=== PATIENT | female | born 1960 | race Caucasian/White ===

== ENCOUNTER 2019-02-20 09:28 | Day surgery (SDC) | payer OTHER ==
[~2019-02-20] VITALS: Ht 149.9 cm; Wt 103.4 kg
[~2019-02-20 09:28] MED LIST: VITAMIN C1000 MG PO
--- NOTE | 2019-02-20 12:21 | NUR ---
02/20/19 1221 Anabell Velazquez 1216 PT ARRIVED TO PACU ON 6L VIA MASK, PT DENIES PAIN. PT REORIENTED TO PACU. 1219 MD AT BEDSIDE AND PT ABLE TO SMILE WITH NO PROBLEMS PT CONTINUES TO DENY PAIN. VSS. RESP EVEN AND UNLABORED. 1221 PT COUHING OFF AND ON AND HOB INCREASED. O2 MASK REMOVED.
[2019-02-20] MEDS ORDERED: ACETAMINOPHEN500 M1 PO (12:49)
[2019-02-20] MEDS ORDERED: MOTRIN IB200 MG PO (12:49)
[2019-02-20] MEDS ORDERED: PERCOCET 7.5-31 EACH PO (12:50)
--- NOTE | 2019-02-20 13:07 | NUR ---
1255: PATIENT BACK IN DAY SURGERY ROOM FROM PACU. DENIES PAIN. DENIES NAUSEA. TOELRATING WATER. VS CHECKED. RIGHT SUBMANDIBLE DRESSING CLEAN, DRY AND INTACT. SCDs ON. IV SITE WNL. AT BEDSIDE. DR. AN IN TO SPEAK WITH PATIENT AND . CALL LIGHT WITHIN REACH.
--- NOTE | 2019-02-20 15:30 | NUR ---
1445: VS CHECKED. PATIENT TOLERATING WATER. GIVEN CRACKERS TO EAT. PATIENT RESTING. CALL LIGHT WITHIN REACH.
--- NOTE | 2019-02-20 15:40 | NUR ---
1500: PATIENT ASSISTED OOB AND TO BATHROOM. VOID WITHOUT DIFFICULTY. GATI STEADY TO AND FROM BATHROOM. PATIENT GETTING DRESSED. 1525: IV DC'D WNL, TIP INTACT. DRESSING APPLIED. DISCHARGE INSTRUCTIONS GIVEN TO PATIENT. PATIENT READY FOR DISCHARGE. WAITING FOR TO RETURN FROM APPOINTMENT.
--- NOTE | 2019-02-20 16:06 | NUR ---
1600: BACK FROM APPOINTMENT. PATIENT DISCHARGED TO HOME WITH VIA WHEELCHAIR.
--- NOTE | 2019-02-22 09:35 | PATH ---
[facility] [address], [place] [address] Signed SPECIMEN(S): A RIGHT SUBMANDIBULAR SPECIMEN(S): B RIGHT SUBMANDIBULAR SPECIMEN SOURCE: A. RIGHT SUBMANDIBULAR B. RIGHT SUBMANDIBULAR CLINICAL HISTORY: Excision of submandibular mass. FINAL PATHOLOGIC DIAGNOSIS: A. Lymph node, right submandibular, excision: - Granulomatous lymphadenitis (noncaseating), see Comment. B. Lymph node #2, right submandibular, excision: - Granulomatous lymphadenitis (noncaseating), see Comment. COMMENT: Section of the two lymph nodes (specimens A and B) are similar and show lymph nodes with effaced architecture by small, "tight' granulomas composed of epithelioid histiocytes, scattered giant cells, and small lymphocytes. Focal, rare areas of fibrinoid necrosis are seen in some granulomas. Dense fibrosis is present in some areas of the larger lymph node (specimen A). No polarizable foreign material is seen. Special stains for AFB and GMS (with appropriately staining controls) were performed on each lymph node and are negative for acid-fast bacilli and fungal organisms, respectively. The differential diagnosis includes sarcoid lymphadenopathy or sarcoid-like reaction. Correlation with clinical findings is recommended. As part of [facility] Quality Improvement Program, this case was reviewed by another member of our pathology staff. NAL:cml:C2NR MICROSCOPIC EXAMINATION: Histologic sections of all submitted blocks are examined by light microscopy. These findings, together with the gross examination, support the pathologic diagnosis. GROSS DESCRIPTION: Two specimens are received in two containers, labeled "JW." A. The specimen, labeled "JW, right submandibular lymph node," is received in formalin and consists of a 2.5 x 2.0 x 1.4 cm, previously bisected portion of PATIENT NAME: ANTONETTE ESQUIVEL PATHOLOGY DATE OF : 60 REPORT #: [id number] PHYSICIAN: CONNIE PATHOLOGY PCP: ASHWINI BROWNE [facility] REPORT IS CONFIDENTIAL AND NOT TO BE RELEASED WITHOUT AUTHORIZATION [facility] [address], [place] [address] Signed garcia-pink soft tissue. Further sectioning shows garcia-white cut surfaces with no discrete lesions identified. The specimen is entirely submitted in cassettes (A1-A3). B. The specimen, labeled "JW, right submandibular lymph node #2," is received in formalin and consists of a 1.5 x 1.2 x 0.5 cm, garcia-pink portion of soft tissue. The specimen is bisected to show garcia-white cut surfaces, and is entirely submitted in cassette (B1). AR (under the direct supervision of a pathologist) The Gross Description was prepared using a voice recognition system. The report was reviewed for accuracy; however, sound-alike word errors, addition and/or deletions may occur. If there is any question about this report, please contact Client Services. PERFORMING LABORATORY: The technical component was performed by [facility] [address] (Senior Risk Manager: Benita Kruse MD; CLIA# [id number]). [facility] [address] [address] (Senior Risk Manager: Kev Ross MD; CLIA# [id number]). Diagnostician: Renee Crowley MD Pathologist Electronically Signed 02/22/2019 Copies: ~ PATIENT NAME: ANTONETTE ESQUIVEL PATHOLOGY DATE OF : 60 REPORT #: [id number] PHYSICIAN: CONNIE PATHOLOGY PCP: ASHWINI BROWNE REPORT IS CONFIDENTIAL AND NOT TO BE RELEASED WITHOUT AUTHORIZATION
--- NOTE | 2019-02-22 18:09 | OR ---
[facility] [address], [place] [address] Signed DATE OF OPERATION: 02/20/2019 SURGEON: Nilam An MD PREOPERATIVE DIAGNOSIS: Persistent right submandibular mass. POSTOPERATIVE DIAGNOSIS: Persistent right submandibular mass. Probable enlarged lymph node 2.5 cm with additional adjacent lymph node 1.5 cm, also excised. PROCEDURE PERFORMED: Deep cervical lymph node biopsy x2, submandibular space. ANESTHESIA: General endotracheal; Leigha Marmolejo CRNA and local 4 mL of 0.25% Marcaine with epinephrine. INDICATION: This is a 58-year-old white woman from [place], [place] and referred by Lucille Browne, nurse practitioner of [place], [place] with findings of a right submandibular mass. This was initially discovered in March of last year. It has never been painful or tender in anyway, but is enlarged over time and remains approximately 2.5 cm in size. She was empirically treated with antibiotics, which had no improvement in the size of the problem. Notably she has had right mandibular molar root canal in the past for problematic tooth. She underwent a CT scan of the neck on July 27, 2018 at [facility] to correspond to an ultrasound identified right submandibular mass. Additionally noted a complex partially cystic solid mass of the left thyroid lobe. Notably she underwent ENT evaluation in [place] in the distant past for dysphagia, which was attributed to a "deep vallecula." An ultrasound that had been performed showed a possible 2.2 cm lesion. As the lesion persists and is somewhat bothersome to her though not exquisitely painful, excision has been offered. The risks of bleeding, infection, injury to local nerves including the marginal mandibular branch of the facial nerve were all reviewed with the patient and her . They understand and wished to proceed. FINDINGS: The ballotable mass was quite easily identified though it was deep. An approach quite similar to a submandibular gland excision was used identifying well the lesion, which Electronically Signed By: NILAM AN MD 02/22/19 1809 PATIENT NAME: ANTONETTE ESQUIVEL OPERATIVE REPORT DATE OF : 60 REPORT #: [id number] PHYSICIAN: NILAM AN MD PCP: LUCILLE BROWNE [facility] REPORT IS CONFIDENTIAL AND NOT TO BE RELEASED WITHOUT AUTHORIZATION [facility] [address], [place] [address] Signed indeed was an enlarged lymph node. There was another small lymph node posteriorly oriented to it. The submandibular gland itself was one layer deep to this and was quite normal in its appearance. Complete excision of the gland was undertaken. She shows no sign of mandibular branch nerve dysfunction postoperatively. DESCRIPTION OF PROCEDURE: The patient was brought to the operating room and given a general endotracheal anesthetic. A glide scope was used as her airway was slightly difficult. She received preoperative antibiotic Ancef and sequential compression device stockings were used. Her head was turned towards the left and preparation of the neck and face and so first was undertaken with an iodine based facial DuraPrep type solution. The angle of the mandible was marked with a marker as was the sternocleidomastoid muscle, several centimeters below the margin of the mandible and the natural skin crease, a line for incision was marked as well. Palpable mass is in the mid submandibular area. A 4 mL of 0.25% Marcaine with epinephrine was injected in the subdermal space allowing for incision along the line as natural skin tension. Dissection was carried through the dermis sharply. Electrocautery was used for hemostasis. The platysmal layer was incised with electrocautery. A crossing vein was identified and secured and ligated with 3-0 silk tie, elevating it cephalad. A flap was created beneath the platysma using primarily sharp dissection. Beneath this area deep in the submandibular space, the palpable abnormality to be identified using blunt dissection and with identification of the mylohyoid muscle and the anterior belly of the digastric, the lymph node was gently dissected free from surrounding soft tissue. Stylohyoid muscle was a posterior boundary to this area as well. This was gently freed until the vascular pedicle was isolated and two clips applied. The lesion was clearly a lymph node and enlarged and pathologic, but uncertain regarding malignancy. Photographs were taken throughout. The lesion was bivalved and examination internally showed a fleshy lymph node with some scarring actually. Further dissection posteriorly revealed another smaller such lymph node, very similar in appearance and excised with the same technique. Deep to this was a thin capsule directly over the submandibular gland, capsule was freed with blunt and minimal sharp dissection identifying the submandibular gland, which was visibly and palpably normal. It was left in situ. Irrigation was undertaken and plans made for closure. The platysmal layer was reapproximated with interrupted 2-0 Vicryl and the skin closed with running subcuticular 3-0 Vicryl. Steri-Strips were applied as was Mepilex silver sponge dressing and an OpSite. The patient tolerated procedure well. There were no complications. Sponge, needle and instrument counts were reported as correct x3. Cranial nerve examination in the recovery room showed no sign of nerve palsy or other issue. Electronically Signed By: NILAM AN MD 02/22/19 1809 PATIENT NAME: ESQUIVELANTONETTE OPERATIVE REPORT DATE OF : 60 REPORT #: [id number] PHYSICIAN: NILAM AN MD PCP: LUCILLE BROWNE [facility] REPORT IS CONFIDENTIAL AND NOT TO BE RELEASED WITHOUT AUTHORIZATION [address] [place], [place] [address] Signed Nilam An MD /FARZANA /[id number] cc: Lucille Browne [facility] Copies: LUCILLE BROWNEP-[place] ~ Electronically Signed By: NILAM AN MD 02/22/19 1809 PATIENT NAME: ANTONETTE ESQUIVEL OPERATIVE REPORT DATE OF : 60 REPORT #: [id number] PHYSICIAN: NILAM AN MD PCP: LUCILLE BROWNE [facility] REPORT IS CONFIDENTIAL AND NOT TO BE RELEASED WITHOUT AUTHORIZATION
== END 2019-02-20 16:00 | disposition home or self-care (01) ==
LOC: OPS 09:28
PROVIDERS: Surgery
PROC: 07B10ZX Excision of Right Neck Lymphatic, Open Approach, Diagnostic (ICD-10-PCS; principal; 2019-02-20 11:15)
DX: I88.9 Nonspecific lymphadenitis, unspecified (principal); G47.30 Sleep apnea, unspecified; K21.9 Gastro-esophageal reflux disease without esophagitis; E66.01 Morbid (severe) obesity due to excess calories; E03.9 Hypothyroidism, unspecified; Z88.2 Allergy status to sulfonamides; Z88.1 Allergy status to other antibiotic agents; Z79.899 Other long term (current) drug therapy; Z99.89 Dependence on other enabling machines and devices; Z68.41 Body mass index [BMI] 40.0-44.9, adult
CPT/HCPCS: 00300; J0131; J0330; J0690; J2250; J2405; J2704; J3010; J7120